=== PATIENT | male | born 1960 | race Caucasian/White ===

== ENCOUNTER → 2017-09-21 | Day surgery (SDC) | payer BC ==
[~2017-09-21] MED LIST: Lactated Ringers 1,000 ML IV SCH; Propofol 200 MG/20 ML SDV IV ONE
--- NOTE | 2017-09-21 14:08 | OR ---
DATE OF OPERATION: 09/21/2017 PREOPERATIVE DIAGNOSIS: SCREENING COLONOSCOPY. POSTOPERATIVE DIAGNOSIS: SCREENING COLONOSCOPY. SURGEON: Harsh Pa MD PROCEDURE: FULL-LENGTH COLONOSCOPY WITH POLYP REMOVAL X1. ANESTHESIA: [employer] ASSEM[employer] due to obesity. COMPLICATIONS: None. SPECIMEN: Hyperplastic polyp, rectosigmoid junction. FINDINGS: 1. Full-length colonoscopy. 2. Small hyperplastic polyp, rectosigmoid junction. RECOMMENDATIONS: Follow up colonoscopy every 10 years. INDICATIONS: The patient was in for a routine physical. He was sent for a screening colonoscopy by Arjun Fitzpatrick. DESCRIPTION OF PROCEDURE: The patient was prepped and draped, placed in the left lateral decubitus position. A lubricated Olympus colonoscope was inserted and easily advanced to the cecum. Direct visualization of the ileocecal valve and appendiceal orifice was accomplished. The bowel prep was excellent. Upon withdrawal, throughout the right transverse and descending colon, no abnormalities were seen. The sigmoid colon had no polyps, masses, ulcerations, or bleeding sites. No vascular abnormalities or signs of colitis. At the rectosigmoid junction, there was one small hyperplastic polyp removed in its entirety with forceps. Resolution of bleeding was spontaneous. The rectal vault itself was benign. Retroflexion of the scope in the rectum showed no anal lesions. Air was suctioned, scope removed without complication. MAC/DUGLAS /[id number]
--- NOTE | 2017-09-21 14:08 | LETTER ---
09/21/2017 [facility] [address] [place] [address] RE: SILVERIO CRUM JAM : 1960 Dear Arjun: Silverio Crum is status post colonoscopy, had one small hyperplastic polyp removed which is nothing to be concerned with, assuming pathology confirms and he should have a followup colonoscopy every 10 years. Thanks for the referral. Hope you had great holiday. Respectfully, Harsh WATTS/DUGLAS /[id number]
== END ==
LOC: CC.SDS 06:34
PROVIDERS: ATTEND Family Medicine
DX: Z12.11 Encounter for screening for malignant neoplasm of colon (principal); K63.5 Polyp of colon; I10 Essential (primary) hypertension; E11.65 Type 2 diabetes mellitus with hyperglycemia; E78.5 Hyperlipidemia, unspecified; K21.9 Gastro-esophageal reflux disease without esophagitis; E66.9 Obesity, unspecified; M77.30 Calcaneal spur, unspecified foot; Z98.890 Other specified postprocedural states; Z79.899 Other long term (current) drug therapy; Z79.84 Long term (current) use of oral hypoglycemic drugs; Z79.82 Long term (current) use of aspirin; Z88.0 Allergy status to penicillin; Z88.1 Allergy status to other antibiotic agents; Z88.2 Allergy status to sulfonamides; Z88.8 Allergy status to other drugs, medicaments and biological substances
CPT/HCPCS: 82962; J2704; J7120